=== PATIENT | male | born 1985 | race Hispanic/Latino ===

== ENCOUNTER → 2016-08-03 | Outpatient (CLI) | payer OTHER ==
--- NOTE | 2016-08-03 18:46 | REP ---
MAXILLOFACIAL CT WITHOUT CONTRAST: REASON FOR EXAM: Chronic sinusitis. COMPARISON CT: None. The osteomeatal complex is patent bilaterally. Tiny stefania bullosa are seen in the superior turbinates. The hiatus, semilunaris is normal bilaterally. There is leftward nasal septal deviation and a leftward nasal septal spine. Minimal mucosal thickening is seen in the floor of the maxillary antra. The ethmoid bulla, sphenoid sinuses, and frontal sinuses are essentially clear. The cribriform plate and tanya tanya are intact. There is no lysis or sclerosis of the bony architecture surrounding the paranasal sinuses. IMPRESSION: Patent osteomeatal complexes. Small amount of paranasal sinus mucosal thickening as described above. Signed by Santosh Brady DO 08/03/2016 07:05 P
== END ==
LOC: M RAD 16:43
PROVIDERS: ATTEND Otolaryngology
DX: J32.4 Chronic pansinusitis (principal)

== ENCOUNTER 2017-01-29 06:58 | Day surgery (SDC) | payer OTHER ==
[~2017-01-29] VITALS: Ht 177.8 cm; Wt 79.4 kg
[2017-01-29] MEDS ORDERED: LR 1,000 ML IV ONE (07:00)
[2017-01-29] MEDS ORDERED: MIDAZOLAM INJ 2 MG/2 ML VIAL (J2250) As Ordered ONE (08:09)
[2017-01-29] MEDS ORDERED: fentaNYL 100 MCG/2 ML INJECTION (J3010) As Ordered ONE ×2 (08:09→09:31)
[2017-01-29] MEDS ORDERED: EPINEPHrine 1MG/ML INJ 30ML MD-VIAL As Ordered ONE ×2 (08:46→09:04)
[2017-01-29] MEDS ORDERED: METHYLENE BLUE 0.5% (5MG/ML) 10 ML AMP (PROVAYBLUE)(Q9968 PER 1MG) As Ordered ONE (08:46)
[2017-01-29] MEDS ORDERED: LIDOCAINE W/EPINEPHRINE 1% 20ML VIAL As Ordered ONE (08:46)
[2017-01-29] MEDS ORDERED: LIDOCAINE 2% INJ 100 MG/5 ML SDV (FOR ANES.) As Ordered ONE (09:29)
[2017-01-29] MEDS ORDERED: dexameTHASONE 4 MG/ML 1ML VIAL (J1100) As Ordered ONE (09:29)
[2017-01-29] MEDS ORDERED: PROPOFOL 200 MG/20 ML VIAL As Ordered ONE (09:29)
[2017-01-29] MEDS ORDERED: GLYCOPYRROLATE INJ 0.2 MG/ML 2 ML VIAL As Ordered ONE (09:29)
[2017-01-29] MEDS ORDERED: NEOSTIGMINE 1MG/ML 5 ML SYRINGE (J2710) As Ordered ONE (09:29)
[2017-01-29] MEDS ORDERED: ONDANSETRON 4MG/2ML VIAL (J2405) As Ordered ONE (09:29)
[2017-01-29] MEDS ORDERED: PERCOCET 5MG/325MG TAB PO PRN (10:15)
[2017-01-29] MEDS ORDERED: ONDANSETRON 4MG/2ML VIAL (J2405) IV PRN (10:15)
[2017-01-29] MEDS ORDERED: LR 1,000 ML IV SCH ×2 (10:15)
[2017-01-29] MEDS ORDERED: fentaNYL 100 MCG/2 ML INJECTION (J3010) IV PRN (10:15)
[2017-01-29] MEDS ORDERED: ACETAMINOPH W/CODEINE #3 TAB UD PO PRN (10:30)
[2017-01-29 12:10] VITALS: BP 125/66
--- NOTE | 2017-01-29 12:35 | RO ---
DATE OF PROCEDURE: 01/29/2017 PREOPERATIVE DIAGNOSES: Nasal septal deviation, chronic rhinitis. POSTOPERATIVE DIAGNOSES: Nasal septal deviation, chronic rhinitis. PROCEDURE: Septoplasty, bilateral turbinectomy. SURGEON: Dr. Yong Brock LOGISTICAL ENGINEER: ANESTHESIA: . DESCRIPTION OF PROCEDURE: Under general anesthesia with the patient intubated, the patient prepped and draped in the usual manner. I used pledgets of adrenaline 1:100,000 and infiltrated with lidocaine and epinephrine. I started first on the left side. I made an incision anteriorly, and I elevated the subperichondrial periosteal plane. I divided the quadrangular cartilage and ethmoid plate and then removed portions of the ethmoid plate, vomer, and maxillary crest, which were deviated. Once this was done, the septum was straight. The incision closed with 4-0 Vicryl and 4-0 chromic sutures. A midline incision made anteriorly in the inferior turbinate on both sides. I elevated the mucosa. Then, I used a microdebrider and forceps to remove portions of the stefania anteriorly. The patient tolerated the procedure well. Less than 20 mL estimated blood loss. The patient was extubated and transferred to the recovery room in excellent condition.
== END 2017-01-29 12:20 | disposition home or self-care (01) ==
LOC: M SDC 06:58
PROVIDERS: ATTEND Otolaryngology
DX: J34.2 Deviated nasal septum (principal); J31.0 Chronic rhinitis; G47.9 Sleep disorder, unspecified
CPT/HCPCS: 30130; 30520; 88305; J1100; J2250; J2405; J2710; J3010; Q9968